=== PATIENT | female | born 1965 | race Native Hawaiian/Other Pacific Islander ===

== ENCOUNTER 2020-05-10 13:08 | Outpatient (CLI) | payer OTHER | END 2020-05-10 19:06 | disposition home or self-care (01) | LOC: RAD 13:08 | DX: M19.90 Unspecified osteoarthritis, unspecified site (principal); M51.36 Other intervertebral disc degeneration, lumbar region; E11.9 Type 2 diabetes mellitus without complications; E07.9 Disorder of thyroid, unspecified ==